=== PATIENT | male | born 1960 | race Caucasian/White ===

== ENCOUNTER 2019-03-17 23:51 | Emergency (ER) | payer MEDICAID ==
[~2019-03-17] VITALS: Ht 182.9 cm; Wt 104.3 kg
[2019-03-17 23:55] VITALS: BP_SYST 136
[2019-03-18] MEDS ORDERED: IPRATROPIUM/ALBUTEROL SULFATE 3 ML AMPUL.NEB (DUONEB) INH ONE (00:45)
[2019-03-18] MEDS ORDERED: methylPREDNISolone SOD SUCC/PF 62.5 MG/ML VIAL IVP ONE (00:45)
[2019-03-18 01:11] LABS: BASOPHILS # (AUTO) 0.1 K/uL (0.0-0.2); BASOPHILS % (AUTO) 0.8 % (0.0-2.0); EOSINOPHILS # (AUTO) 0.6 K/uL (0.0-0.4); EOSINOPHILS % (AUTO) 4.7 % (0.0-4.0); HEMOGLOBIN 11.7 g/dL (14.0-18.0); LYMPHOCYTES # (AUTO) 2.1 K/uL (1.0-5.5); LYMPHOCYTES % (AUTO) 17.1 % (20.5-51.5); MEAN CORPUSCULAR HEMOGLOBIN 28 pg (27-31); MEAN CORPUSCULAR HGB CONC 33 % (32-36); MEAN CORPUSCULAR VOLUME 86 fL (79.0-98.0); MONOCYTES # (AUTO) 1.4 K/uL (0.0-1.0); MONOCYTES % (AUTO) 11.5 % (1.7-9.3); NEUTROPHILS # (AUTO) 8.2 K/uL (1.8-7.7); NEUTROPHILS % (AUTO) 65.9 % (40.0-70.0); PLATELET COUNT (AUTO) 306 K/uL (130-430); RED BLOOD CELL COUNT(AUTO) 4.21 MIL/uL (4.2-6.2); RED CELL DISTRIBUTION WIDTH 14.9 % (9.0-15.0); WHITE BLOOD COUNT (AUTO) 12.5 K/uL (4.8-10.8)
[2019-03-18 01:13] LABS: CALCIUM 9.8 mg/dL (8.4-11.0); CREATININE 2.05 mg/dL (0.55-1.30); POTASSIUM 3.7 mmol/L (3.5-5.1)
[2019-03-18 01:16] LABS: INR 0.9 (0.80-1.20); PROTHROMBIN TIME 9.4 SECS (9.5-12.5)
[2019-03-18 01:19] LABS: ALBUMIN 3.4 g/dL (3.4-4.8); TOTAL BILIRUBIN 0.4 mg/dL (0.0-1.0)
[2019-03-18 01:46] LABS: CKMB RELATIVE INDEX 0.6 (0.0-2.9); CREATINE KINASE MB 2.1 ng/mL (0-3.6)
[2019-03-18 02:25] VITALS: BP_SYST 120
== END 2019-03-18 02:25 | disposition home or self-care (01) ==
LOC: SED 23:51
DX: J45.901 Unspecified asthma with (acute) exacerbation (principal); Z90.49 Acquired absence of other specified parts of digestive tract
CPT/HCPCS: 36415; 71045; 80053; 82550; 82553; 83880; 84484; 85025; 85379; 85610; 93005; 94640; 96374; 99284; J2930; J7620

== ENCOUNTER 2019-05-04 16:09 | Emergency (ER) | payer MEDICAID ==
[~2019-05-04] VITALS: Ht 182.9 cm; Wt 102.1 kg
[2019-05-04 16:24] VITALS: BP_SYST 147
[2019-05-04] MEDS ORDERED: LIDOCAINE 1% 10 MG/ML, 20 ML MDV INJ ONE (16:45)
[2019-05-04 17:40] VITALS: BP_SYST 147
== END 2019-05-04 17:40 | disposition home or self-care (01) ==
LOC: SED 16:09
DX: L03.012 Cellulitis of left finger (principal); J45.909 Unspecified asthma, uncomplicated; E11.9 Type 2 diabetes mellitus without complications; I10 Essential (primary) hypertension; Z88.8 Allergy status to other drugs, medicaments and biological substances
CPT/HCPCS: 10060; 82962; 99283; J2001

== ENCOUNTER 2019-05-07 08:16 | Emergency (ER) | payer MEDICAID ==
[~2019-05-07] VITALS: Ht 182.9 cm; Wt 102.1 kg
[2019-05-07 08:26] VITALS: BP_SYST 164
[2019-05-07 09:00] VITALS: BP_SYST 164
[2019-05-07] MEDS ORDERED: BACITRACIN 1 GM OINT TP ONE (09:01)
== END 2019-05-07 09:00 | disposition home or self-care (01) ==
LOC: SED 08:16
DX: Z48.01 Encounter for change or removal of surgical wound dressing (principal); J45.909 Unspecified asthma, uncomplicated; E11.9 Type 2 diabetes mellitus without complications; I10 Essential (primary) hypertension; Z88.8 Allergy status to other drugs, medicaments and biological substances
CPT/HCPCS: 99281

== ENCOUNTER 2019-09-10 16:15 | Emergency (ER) | payer MEDICAID ==
[~2019-09-10] VITALS: Ht 182.9 cm; Wt 104.3 kg
--- NOTE | 2019-09-10 16:18 | NUR ---
Patient to ER bed 05 to gown for evaluation. Side rails up.
--- NOTE | 2019-09-10 16:20 | NUR ---
Pt came to ER c/o cough, difficulty breathing. AO4, RR labored on RA, decreased O2 sat with activity.
[2019-09-10 16:21] VITALS: BP_SYST 131
--- NOTE | 2019-09-10 16:25 | NUR ---
SAMIRA Schneider at bedside examining patient.
[2019-09-10] MEDS ORDERED: IPRATROPIUM/ALBUTEROL SULFATE 3 ML AMPUL.NEB (DUONEB) INH ONE (16:30)
--- NOTE | 2019-09-10 16:35 | NUR ---
nebulizer treatment administered to pt
[2019-09-10] MEDS ORDERED: IPRATROPIUM/ALBUTEROL SULFATE 3 ML AMPUL.NEB (DUONEB) ONE (16:40)
--- NOTE | 2019-09-10 16:40 | NUR ---
pt currently getting a CXR at the bedside
[2019-09-10] MEDS ORDERED: AZITHROMYCIN 250 MG TABLET PO ONE (17:30)
--- NOTE | 2019-09-10 17:35 | NUR ---
Azithromycin administered
--- NOTE | 2019-09-10 17:44 | NUR ---
Patient given written and verbal discharge instructions and verbalizes understanding. ER MD discussed with patient the results and treatment provided. Patient in stable condition. ID arm band removed. Rx of Azithromycin, Albuterol given. Patient educated on pain management and to follow up with PMD. Pain Scale 0. Opportunity for questions provided and answered. Medication side effect fact sheet provided.
[2019-09-10 17:48] VITALS: BP_SYST 131
== END 2019-09-10 17:48 | disposition home or self-care (01) ==
LOC: SED 16:15
DX: J45.909 Unspecified asthma, uncomplicated (principal); E11.9 Type 2 diabetes mellitus without complications; I10 Essential (primary) hypertension; Z88.8 Allergy status to other drugs, medicaments and biological substances
CPT/HCPCS: 71045; 86710; 94640; 99284; J7620; Q0144; 36415